=== PATIENT | female | born 1995 | race American Indian/Alaskan Native ===

== ENCOUNTER 2021-02-24 23:08 | Outpatient (CLI) | payer MEDICAID ==
[2021-02-24 23:41] VITALS: BP 126/79
== END 2021-02-25 00:27 | disposition home or self-care (01) ==
LOC: TRG 23:08 → APU 23:10 → TRG 02-25 00:27
PROVIDERS: ATTEND Obstetrics & Gynecology
DX: Z34.93 Encounter for supervision of normal pregnancy, unspecified, third trimester (principal); Z3A.38 38 weeks gestation of pregnancy
CPT/HCPCS: 59025

== ENCOUNTER 2021-03-15 22:46 | Inpatient (IN) | payer MEDICAID ==
[2021-03-15] MEDS ORDERED: OXYTOCIN 10 UNIT/1 ML INJ IM PRN (23:11)
[2021-03-15] MEDS ORDERED: CARBOPROST TROMETHAMINE 250 MCG/1 ML INJ IM PRN (23:11)
[2021-03-15] MEDS ORDERED: ONDANSETRON 4 MG/2 ML INJ IV PRN (23:11)
[2021-03-15] MEDS ORDERED: METHYLERGONOVINE MALEATE 0.2 MG/ML VIAL IM PRN (23:11)
[2021-03-15] MEDS ORDERED: miSOPROStol 200 MCG TAB PR PRN (23:11)
[2021-03-15] MEDS ORDERED: ePHEDrine SULFATE 50 MG/1 ML INJ IV PRN (23:11)
[2021-03-15] MEDS ORDERED: BUTORPHANOL 2 MG/1 ML INJ IV PRN ×2 (23:11)
[2021-03-15] MEDS ORDERED: TERBUTALINE 1 MG/1 ML INJ SUB-Q PRN (23:11)
[2021-03-15] MEDS ORDERED: NALOXONE 0.4 MG/1 ML INJ IV PRN (23:11)
[2021-03-15] MEDS ORDERED: LOPERAMIDE 2 MG CAP PO PRN (23:11)
[2021-03-15] MEDS ORDERED: MINERAL OIL 30 ML ORAL LIQD PO PRN (23:11)
[2021-03-15] MEDS ORDERED: ACETAMINOPHEN 325 MG TAB PO PRN (23:11)
[2021-03-15] MEDS ORDERED: fentaNYL 100 MCG/2 ML INJ IV PRN (23:11)
[2021-03-15] MEDS ORDERED: LIDOCAINE (2%) 20 MG/1 ML VIAL 20 ML MDV INFILTRATI ONE (23:11)
[2021-03-15] MEDS ORDERED: LACTATED RINGERS 1,000 ML ONE (23:18)
[2021-03-15] MEDS ORDERED: OXYTOCIN DRIP 30 UNITS/500 ML BAG IV SCH (23:45)
[2021-03-16 00:05] LABS: Hematocrit 40.9 % (30.3-42.9); Hemoglobin 13.6 gm/dl (10.1-14.3); Mean Corpuscular HGB Conc 33 % (30-34); Mean Corpuscular Volume 90 fl (79-97); Platelet Count 158 K/mm3 (140-440); Red Blood Count 4.57 M/mm3 (3.65-5.03); Red Cell Distribution Width 13.2 % (13.2-15.2)
[2021-03-16] MEDS: LACTATED RINGERS 1,000 ML IV SCH ×3 (00:05→13:10)
[2021-03-16] MEDS ORDERED: NALOXONE 2 MG/2 ML INJ IV PRN (00:12)
[2021-03-16] MEDS ORDERED: LACTATED RINGERS 250 ML IV SOLN IV ONE (00:12)
[2021-03-16] MEDS ORDERED: NalbUPHINE 10 MG/1 ML INJ IV PRN (00:12)
[2021-03-16] MEDS ORDERED: diphenhydrAMINE 50 MG/ML VIAL IV PRN (00:12)
[2021-03-16] MEDS ORDERED: ONDANSETRON 4 MG/2 ML INJ IV PRN ×2 (00:12→16:39)
[2021-03-16] MEDS ORDERED: ePHEDrine SULFATE 50 MG/1 ML INJ IV PRN (00:12)
--- NOTE | 2021-03-16 00:43 | Anesthesia Consultation ---
Anesthesia Consult and Med Hx Date of service: 03/16/21 - Airway Anesthetic Teeth Evaluation: Good ROM Head & Neck: Adequate Mental/Hyoid Distance: Adequate Mallampati Class: Class III Intubation Access Assessment: Possibly Difficult - Pulmonary Exam CTA: Yes - Cardiac Exam Cardiac Exam: RRR - Pre-Operative Health Status ASA Pre-Surgery Classification: ASA2 Proposed Anesthetic Plan: Epidural - Pulmonary Hx Smoking: No Hx Asthma: No COPD: No Hx Pneumonia: No Hx Sleep Apnea: No - Cardiovascular System Hx Hypertension: No Hx Heart Attack/AMI: No Hx Angina: No - Central Nervous System Hx Seizures: No Hx Psychiatric Problems: No - Gastrointestinal Hx Gastroesophageal Reflux Disease: No - Endocrine Hx Renal Disease: No Hx End Stage Renal Disease: No Hx Liver Disease: No Hx Insulin Dependent Diabetes: No Hx Non-Insulin Dependent Diabetes: No Hx Hypothyroidism: No Hx Hyperthyroidism: No - Hematic Hx Anemia: No Hx Sickle Cell Disease: No - Other Systems Hx Alcohol Use: No Hx Obesity: Yes
--- NOTE | 2021-03-16 00:44 | Progress Note ---
Labor Epidural - Labor Epidural Start Time: 00:19 Stop Time: 00:38 Performed by:: KUSH MERLOS Procedure: Patient is requesting epidural for labor and pain. H&P, labs were reviewed. Patient IDed, H&P reviewed, all questions and concerns were answered, and consent was signed. Timeout was performed at bedside. Patient in sitting position. Sterile prep and drape was performed. 3ml of 1% lidocaine skin wheal at L[3]- L [4]. 18-gauge Intellistream epidural needle was advanced to loss of resistance with air technique 9cm. Negative CSF negative blood. Epidural catheter advanced to [15] centimeters. [negative] Aspiration [negative] test dose. Sterile dressing applied. Patient tolerated procedure.
[2021-03-16] MEDS: fentaNYL-BUPIV 2 MCG/ML-0.125% 200 MCG/100 ML BAG EPIDURAL SCH ×2 (00:50→09:19)
--- NOTE | 2021-03-16 07:51 | History and Physical Report ---
History of Present Illness Date of examination: 03/16/21 Date of admission: 03/15/21 23:11 Chief complaint: active labor History of present illness: 25yoG1 at 40+ weeks in active labor Past History Past Surgical History: no surgical history Social history: no significant social history - Obstetrical History Expected Date of Delivery: 03/13/21 Actual Gestation: 40 Week(s) 3 Day(s) : 1 Medications and Allergies Allergies Allergy/AdvReac Type Severity Reaction Status Date / Time No Known Allergies Allergy Unverified 02/24/21 23:48 Home Medications Medication Instructions Recorded Confirmed Last Taken Type One Daily Tablet 1 PO Q24HR 03/16/21 03/15/21 10:00 History Active Meds: Active Medications Acetaminophen (Acetaminophen 325 Mg Tab) 650 mg PO Q4H PRN PRN Reason: Pain, Mild (1-3) Butorphanol Tartrate (Butorphanol 2 Mg/1 Ml Inj) 1 mg IV Q2H PRN PRN Reason: Pain, Moderate(4-6) LABOR PAIN Butorphanol Tartrate (Butorphanol 2 Mg/1 Ml Inj) 2 mg IV Q2H PRN PRN Reason: Pain , Severe (7-10) Carboprost Tromethamine (Carboprost Tromethamine 250 Mcg/1 Ml Inj) 250 mcg IM ONCE PRN PRN Reason: Uterine Bleeding Diphenhydramine HCl (Diphenhydramine 50 Mg/Ml Vial) 12.5 mg IV Q2H PRN PRN Reason: Itching Ephedrine Sulfate (Ephedrine Sulfate 50 Mg/1 Ml Inj) 10 mg IV Q2M PRN PRN Reason: Hypotension Fentanyl (Fentanyl 100 Mcg/2 Ml Inj) 100 mcg IV Q2H PRN PRN Reason: Pain,Severe (7-10) LABOR PAIN Lactated Ringer's (Lactated Ringers) 1,000 mls @ 125 mls/hr IV DIRECT MYLENE Last Admin: 03/16/21 04:44 Dose: 125 mls/hr Documented by: Oxytocin/Sodium Chloride (Pitocin/Ns 30 Unit/500ml) 30 units in 500 mls @ 40 mls/hr IV TITR MYLENE; Protocol Fentanyl/Bupivacaine/Sodium Chlor (Fentanyl-Bupiv 2 Mcg/Ml-0.125%) 200 mcg in 100 mls @ 12 mls/hr EPIDURAL TITR MYLENE; Protocol Last Admin: 03/16/21 00:50 Dose: 12 mls/hr Documented by: Loperamide HCl (Loperamide 2 Mg Cap) 2 mg PO ONCE PRN PRN Reason: give with Hemabate Methylergonovine Maleate (Methylergonovine Maleate 0.2 Mg/Ml Vial) 0.2 mg IM ONCE PRN PRN Reason: Uterine Bleeding Mineral Oil (Mineral Oil 30 Ml Oral Liqd) 30 ml PO QHS PRN PRN Reason: Constipation Misoprostol (Misoprostol 200 Mcg Tab) 800 mcg OK ONCE PRN PRN Reason: Uterine Bleeding Nalbuphine HCl (Nalbuphine 10 Mg/1 Ml Inj) 2.5 mg IV Q2H PRN PRN Reason: Itching Naloxone HCl (Naloxone 0.4 Mg/1 Ml Inj) 0.1 mg IV Q2MIN PRN PRN Reason: Res Rate </= 8 or 02 SAT < 92% Naloxone HCl (Naloxone 2 Mg/2 Ml Inj) 0.2 mg IV Q5M PRN PRN Reason: Respiratory sedation Ondansetron HCl (Ondansetron 4 Mg/2 Ml Inj) 4 mg IV Q8H PRN PRN Reason: Nausea And Vomiting Oxytocin (Oxytocin 10 Unit/1 Ml Inj) 10 unit IM ONCE PRN PRN Reason: Uterine Bleeding Terbutaline Sulfate (Terbutaline 1 Mg/1 Ml Inj) 0.25 mg SUB-Q ONCE PRN PRN Reason: Hyperstimulation/Hypertonicity - Vital Signs Vital signs: Vital Signs Pulse BP 99 H 135/64 03/15/21 23:00 03/15/21 23:00 Temp Pulse Resp BP Pulse Ox 98.1 F 99 H 18 103/60 98 03/16/21 06:57 03/16/21 07:47 03/16/21 06:57 03/16/21 07:25 03/16/21 07:47 - Physical Exam Breasts: Positive: deferred Cardiovascular: Regular rate Lungs: Positive: Clear to auscultation Abdomen: Positive: normal appearance, soft, normal bowel sounds Genitourinary (Female): Positive: normal external genitalia Vagina: Positive: normal moisture Uterus: Positive: enlarged Deep Tendon Reflex Grade: Normal +2 - Obstetrical FHR: category 1 Cervical Dilatation: 6 Cervical Effacement Percentage: 90 station: -2 Results Result Diagrams: 03/15/21 23:20 All other labs normal. Assessment and Plan admission routine labor orders pain meds/epidural as needed GBS prophylaxis CFM oxytocin for aol if needed Maternal/ status reassuring Olimpia Templeton MD
[2021-03-16] MEDS ORDERED: WITCH HAZEL/ GLYCERIN PAD TP PRN (16:39)
[2021-03-16] MEDS ORDERED: HYDROcodone/ACETAMINOPHEN 5-325 MG TAB PO PRN (16:39)
[2021-03-16] MEDS ORDERED: LANOLIN/ZINC/DIMETHICONE (LANSINOH) 7 GM TP PRN (16:39)
[2021-03-16] MEDS ORDERED: MAGNESIUM HYDROXIDE (MOM) ORAL LIQD UDC PO PRN (16:39)
[2021-03-16] MEDS ORDERED: diphenhydrAMINE 25 MG CAP PO PRN (16:39)
[2021-03-16] MEDS ORDERED: ACETAMINOPHEN 325 MG TAB PO PRN (16:39)
--- NOTE | 2021-03-16 16:50 | Procedure Note ---
OB Delivery Note - Delivery Date of Delivery: 03/16/21 Surgeon: MERE GEORGE Estimated blood loss: other (250 cc) - Vaginal Delivery presentation: vertex Delivery position: OA Intrapartum events: none Delivery induction: none Delivery augmentation: pitocin Delivery monitor: external FHT, external uterine Route of delivery: Delivery placenta: spontaneous Delivery cord: 3 umbilical vessels Episiotomy: none Anesthesia: epidural Delivery comments: Spontaneous vaginal delivery at 16:00 of liveborn female infant weighing 7 lb. 15 oz. over intact perineum with apgars of 8/9. Epidural anesthesia. was atraumatic; no nuchal cord. Short cord. Baby placed skin to skin with mom immediately after delivery. Spontaneous cry and respirations. Baby suctioned with bulb syringe and dried with warm towels. 3 vessel cord double clamped and cut and baby taken to radiant warmer for further suctioning. Spontaneous delivery of intact placenta and membranes by murillo mechanism. EBL 250 cc. Pitocin to IV fluids after delivery of placenta. Uterine atony noted so Cytotec 800 micrograms given rectally. Small left labial skid louis, not bleeding and not repaired. No other lacerations noted. Vaginal sweep negative. Sponge count correct. Mother and baby stable.
[2021-03-16] MEDS: IBUPROFEN 600 MG TAB PO SCH (19:55)
[2021-03-17] MEDS: IBUPROFEN 600 MG TAB PO SCH ×4 (00:26→17:14)
[2021-03-17 06:11] LABS: Hematocrit 33.9 % (30.3-42.9); Hemoglobin 11.3 gm/dl (10.1-14.3)
--- NOTE | 2021-03-17 09:03 | Post Anesthesia Evaluation ---
- Post Anesthesia Evaluation Patient Participated: Yes Airway Patent: Yes Stable Respiratory Function: Yes Nausea/Vomiting: No Temp > 96.8F: Yes Pain Manageable: Yes Adequeate Hydration: Yes Anesthesia Complications: No Block Receding Appropriately: Yes Patient on Ventilator: No
--- NOTE | 2021-03-17 13:28 | Progress Note ---
Subjective - Subjective Date of service: 03/17/21 Interval history: continue routine PP care Olimpia Templeton MD Patient reports: appetite normal, voiding normally, pain well controlled Damon: doing well Objective - Vital Signs Latest vital signs: Vital Signs Temp Pulse Resp BP BP Pulse Ox 03/17/21 11:54 97.3 F L 81 20 106/80 99 03/17/21 07:51 97.2 F L 67 16 116/72 100 03/17/21 06:15 16 03/17/21 04:53 97.7 F 55 L 20 123/62 97 03/17/21 00:27 97.8 F 96 H 20 115/63 99 03/17/21 00:26 18 03/16/21 20:28 99.2 F 72 18 140/81 03/16/21 19:51 18 03/16/21 17:54 64 131/68 03/16/21 17:32 88 97 03/16/21 17:27 93 H 98 03/16/21 17:22 82 99 03/16/21 17:17 63 100 03/16/21 17:12 59 L 100 03/16/21 17:07 65 99 03/16/21 17:03 68 130/69 03/16/21 17:02 70 100 03/16/21 16:57 64 100 03/16/21 16:55 77 145/77 03/16/21 16:52 67 99 03/16/21 16:47 67 100 03/16/21 16:43 81 123/68 03/16/21 16:42 79 99 03/16/21 16:40 98.8 F 63 123/68 99 03/16/21 16:37 82 97 03/16/21 16:32 82 99 03/16/21 16:27 84 99 03/16/21 16:25 88 129/86 03/16/21 16:22 71 99 03/16/21 16:17 89 98 03/16/21 16:12 81 99 03/16/21 16:07 90 99 03/16/21 16:02 99 H 98 03/16/21 15:58 89 94 03/16/21 15:57 101 H 99 03/16/21 15:56 105 H 157/107 03/16/21 15:52 82 98 03/16/21 15:47 76 98 03/16/21 15:42 101 H 100 03/16/21 15:39 104 H 87 03/16/21 15:37 92 H 99 03/16/21 15:32 87 96 03/16/21 15:27 104 H 139/77 99 03/16/21 15:22 96 H 99 03/16/21 15:17 87 100 03/16/21 15:12 88 97 03/16/21 15:07 98 H 99 03/16/21 15:02 104 H 98 03/16/21 14:57 71 99 03/16/21 14:56 71 136/76 03/16/21 14:52 91 H 99 03/16/21 14:47 71 99 03/16/21 14:42 73 99 03/16/21 14:37 88 99 03/16/21 14:32 72 98 03/16/21 14:27 67 100 03/16/21 14:25 66 133/75 03/16/21 14:22 68 98 03/16/21 14:17 82 99 03/16/21 14:12 78 99 03/16/21 14:07 78 98 03/16/21 14:02 79 98 03/16/21 13:57 88 99 03/16/21 13:56 82 132/78 03/16/21 13:52 85 98 03/16/21 13:47 94 H 99 03/16/21 13:42 89 98 03/16/21 13:37 82 99 03/16/21 13:32 89 99 Intake and Output 03/16/21 03/17/21 03/17/21 23:59 07:59 15:59 Intake Total 280 Output Total 1000 300 Balance -720 -300 Intake: IV 40 Right Wrist 40 Oral 240 Output: Urine 1000 300 Void 1000 300 Other: Total, Intake Amount 240 Total, Output Amount 400 300 # Voids Void 1 - Exam Breasts: Present: deferred Cardiovascular: Present: Regular rate Lungs: Present: Clear to auscultation Abdomen: Present: normal appearance, soft, normal bowel sounds Uterus: Present: fundal height below umbilicus Extremities: Present: normal
[2021-03-18] MEDS: IBUPROFEN 600 MG TAB PO SCH ×3 (00:32→11:36)
--- NOTE | 2021-03-18 08:43 | Progress Note ---
Assessment and Plan A: day 2 S/P . P: Discharge patient home today. Discussed with patient discharge instructions and warning signs. Advised patient to continue taking her vitamin daily at home. Advised patient to avoid IC, lifting, heavy housework. Advised patient to follow up at [facility] in 6 weeks. Patient voiced understanding of all instructions. Subjective - Subjective Date of service: 03/18/21 Principal diagnosis: day 2 S/P Patient reports: appetite normal, voiding normally, pain well controlled, flatus, ambulating normally, no dizzy ambulation, no nauseated : doing well Objective - Vital Signs Latest vital signs: Vital Signs Temp Pulse Resp BP Pulse Ox 03/18/21 07:25 97.4 F L 57 L 20 107/72 99 03/18/21 00:21 97.6 F 78 20 105/71 94 03/17/21 16:12 97.4 F L 67 16 117/70 99 03/17/21 11:54 97.3 F L 81 20 106/80 99 Intake and Output 03/17/21 03/18/21 03/18/21 23:59 07:59 15:59 Intake Total 440 600 Balance 440 600 Intake: Oral 440 240 Intake, Free Water 360 Other: Total, Intake Amount 240 240 Voiding Method Toilet # Voids Void 1 1 - Exam Cardiovascular: Present: Regular rate Lungs: Present: Clear to auscultation Abdomen: Present: normal appearance, soft, normal bowel sounds. Absent: distention, tenderness, guarding, rigidity Uterus: Present: normal, firm, fundal height below umbilicus. Absent: bogginess, tenderness Extremities: Absent: tenderness, edema
--- NOTE | 2021-03-18 08:45 | Discharge Summary ---
Providers - Providers Date of Admission: 03/15/21 23:11 Date of discharge: 03/18/21 Attending physician: MACO FOY MD 03/17/21 08:00 Consult to Senior Grant Writer [CONS] Routine Reason For Exam: Primary care physician: MACO FOY MD Hospitalization Reason for admission: active labor Delivery: Episiotomy: none Laceration: none Other procedures: none complications: none Discharge diagnosis: IUP at term delivered [place] baby: female Pertinent studies: Labs Hospital course: Normal hospital course Condition at discharge: Good Disposition: DC-01 TO HOME OR SELFCARE - Discharge Diagnoses (1) Term delivered Status: Acute Plan - Provider Discharge Summary Activity: routine, no sex for 6 weeks, no heavy lifting 4 weeks, no strenuous exercise Diet: routine Instructions: routine Additional instructions: Continue taking your vitamin daily at home. Follow up at [facility] in 6 weeks. Call your doctor immediately for: * Fever > 100.5 * Heavy vaginal bleeding ( >1 pad per hour) * Severe persistent headache * Shortness of breath * Reddened, hot, painful area to leg or breast - Follow up plan Follow up: MACO FOY MD [Primary Care Provider] - 6 Weeks
[2021-03-18 12:38] VITALS: BP 123/76
== END 2021-03-18 14:30 | disposition home or self-care (01) | DRG 775 ==
LOC: TRG 22:46 → APU 22:53 → LD 23:11 → TRG 23:11 → OB 03-16 19:17
PROVIDERS: ADMIT Obstetrics & Gynecology; ATTEND Obstetrics & Gynecology
PROC: 10E0XZZ Delivery of Products of Conception, External Approach (ICD-10-PCS; principal; 2021-03-16)
PROC: 3E0R3BZ Introduction of Anesthetic Agent into Spinal Canal, Percutaneous Approach (ICD-10-PCS; 2021-03-16)
PROC: 00HU33Z Insertion of Infusion Device into Spinal Canal, Percutaneous Approach (ICD-10-PCS; 2021-03-16)
DX: O99.214 Obesity complicating childbirth (principal); Z3A.40 40 weeks gestation of pregnancy; Z37.0 Single live birth; Z20.822 Contact with and (suspected) exposure to COVID-19
CPT/HCPCS: 36415; 59025; 85014; 85018; 85027; 86592; 86850; 86900; 86901; 96360; 96372; G0378; J2270; J2590; J7120; Q0177; U0003